=== PATIENT | female | born 1960 | race Caucasian/White ===

== ENCOUNTER 2019-10-13 07:53 | Day surgery (SDC) | payer BC, MEDICAID ==
[~2019-10-13 07:53] MED LIST: Bupivacaine 0.5%/EPINEPHrine 1:200,000 50 ML MDV ONE; Meropenem 500 MG SDV ONE; Midazolam 1 MG/ML 2 ML SDV ONE; Propofol 200 MG/20 ML SDV ONE; fentaNYL 100 MCG/2 ML SDV ONE
[2019-10-13] MEDS ORDERED: Dextrose 5%-Lactated Ringers 1,000 ML IV SCH (08:15)
[2019-10-13] MEDS: Acetaminophen 500 MG Tab PO ONE ×2 (08:18→08:38)
[2019-10-13] MEDS ORDERED: Glycopyrrolate 0.2 MG/ML 5 ML MDV ONE (09:19)
[2019-10-13] MEDS ORDERED: Neostigmine Methylsulfate 1 MG/ML 5 ML Syringe ONE (09:19)
[2019-10-13] MEDS ORDERED: Ondansetron 4 MG/2 ML SDV ONE (09:19)
[2019-10-13] MEDS ORDERED: fentaNYL 250 MCG/5 ML SDV ONE (09:19)
[2019-10-13] MEDS ORDERED: Rocuronium 50 MG/5 ML Vial ONE (09:19)
[2019-10-13] MEDS ORDERED: Propofol 200 MG/20 ML SDV ONE (09:19)
[2019-10-13] MEDS ORDERED: Dexamethasone 4 MG/ML SDV ONE (09:19)
[2019-10-13] MEDS ORDERED: Midazolam 1 MG/ML 2 ML SDV ONE (09:19)
[2019-10-13] MEDS ORDERED: Ketamine 500 MG/5 ML MDV IV SCH (09:30)
[2019-10-13] MEDS ORDERED: Ketamine 50 MG in Sodium Chloride 0.9% 49.5 ML IV SCH (09:30)
[2019-10-13] MEDS: cefOXitin 2 GM in Premix Bag 1 BAG IV ONE ×2 (09:39→13:06)
[2019-10-13] MEDS ORDERED: hydrOXYzine HCL 100 MG/2 ML SDV IM ONE (11:13)
[2019-10-13] MEDS ORDERED: fentaNYL 100 MCG/2 ML SDV IVPUSH ONE (11:13)
[2019-10-13] MEDS ORDERED: HYDROmorphone 0.5 MG/0.5 ML Syringe IVPUSH PRN (13:00)
[2019-10-13] MEDS ORDERED: Ondansetron 4 MG/2 ML SDV IVPUSH PRN (13:00)
[2019-10-13] MEDS: HYDROmorphone 1 MG/ML Syringe IV PRN ×2 (13:55→15:29)
[2019-10-13] MEDS: Acetaminophen 325 MG Tab PO SCH ×2 (15:31→19:50)
[2019-10-13] MEDS ORDERED: ceFAZolin 2 GM in Premix Bag 1 BAG IV SCH (16:00)
[2019-10-13] MEDS: Sucralfate 1 GM Tab PO SCH ×2 (16:21→21:32)
[2019-10-13] MEDS: ceFAZolin 1 GM in Premix Bag 1 BAG IV SCH ×2 (16:21→23:59)
[2019-10-13] MEDS: oxyCODONE 5 MG Tab PO PRN ×2 (17:52→22:36)
[2019-10-13] MEDS: Dextrose 5%-Lactated Ringers 1,000 ML IV SCH ×2 (17:53→21:25)
[2019-10-13] MEDS ORDERED: traZODone 50 MG Tab PO SCH (21:00)
[2019-10-13] MEDS: Latanoprost 0.005% Ophth Soln 2.5 ML Bottle EYEBOTH SCH (21:30)
[2019-10-14] MEDS: ceFAZolin 1 GM in Premix Bag 1 BAG IV SCH (00:02)
[2019-10-14] MEDS ORDERED: oxyCODONE 5 MG Tab PO PRN (00:20)
[2019-10-14] MEDS: Acetaminophen 325 MG Tab PO SCH ×3 (02:27→13:15)
[2019-10-14] MEDS: Dextrose 5%-Lactated Ringers 1,000 ML IV SCH (06:50)
[2019-10-14] MEDS: Sucralfate 1 GM Tab PO SCH ×2 (07:48→10:38)
[2019-10-14] MEDS: Latanoprost 0.005% Ophth Soln 2.5 ML Bottle EYEBOTH SCH (07:48)
[2019-10-14] MEDS ORDERED: Cyclobenzaprine 10 MG Tab PO PRN (07:52)
[2019-10-14] MEDS: traMADol 50 MG Tab PO PRN ×2 (08:46→13:15)
[2019-10-14] MEDS ORDERED: Loratadine 10 MG Tab PO SCH (09:00)
[2019-10-14] MEDS ORDERED: MIMVEY PO SCH (09:00)
--- NOTE | 2019-10-16 06:49 | DISCH ---
FINAL DIAGNOSES: 1. Incarcerated spigelian hernia. 2. Sclerotic contracted area on surface of right lobe of liver. OPERATIVE PROCEDURES: 1. Diagnostic laparoscopy with lysis of adhesions and: a. Repair of left incarcerated spigelian hernia with mesh. b. Needle biopsy of right lobe of liver. c. Wedge biopsy of right lobe of liver. d. Placement of Interceed mesh to prevent adhesions between the pelvic and abdominal wall and underlying viscera. That was done on 10/13/2019. SUMMARY: This is a 59-year-old presenting with an incarcerated left-sided spigelian hernia. On the date of admission, the patient underwent laparoscopic repair of this with mesh. This was classic spigelian hernia with visible branch of the inferior epigastric artery going right into the site of hernia. This was incarcerated with some omentum at this time. The patient had complained of some rectal bleeding of the sigmoid colon underlying this which may have been a clot at times, but it appeared to be at this time normal. One additional finding was that of a sclerotic white contracted area in the anterior aspect of the right lobe of the liver. Wedge and needle biopsies were obtained from this. No other specific pathology was seen in the liver. Postoperatively, the patient has done well. She will be discharged home with tramadol 50 mg q.4 to 6h. p.r.n. pain #40, Flexeril 10 mg p.o. q.8 hours p.r.n. muscle spasm #30 with 1 refill. We will send her home with 2 doses of milk of magnesia and she was instructed she can take Tylenol along with the tramadol. Follow up will be with Jesika Wallis at [facility] on 10/20/2019. With the patient having some recent rectal bleeding, she will be scheduled for a colonoscopy sometime in the latter part of October.
--- NOTE | 2019-10-23 11:59 | OR ---
DATE OF PROCEDURE: 10/13/2019 SURGEON: Wilfredo Argueta MD PREOPERATIVE DIAGNOSIS: Incarcerated spigelian hernia. POSTOPERATIVE DIAGNOSES: 1. Incarcerated left spigelian hernia. 2. Sclerotic contracted lesion on surface of right lobe of liver. OPERATIVE PROCEDURES: Diagnostic laparoscopy with lysis of adhesions: 1. Repair of incarcerated left spigelian hernia with mesh (87439). 2. Needle biopsies of sclerotic contracted lesion of right lobe of liver (35901). 3. Wedge biopsy of contracted sclerotic lesion of right lobe of liver (60498). 4. Placement of Interceed mesh to displace pelvic and abdominal wall from underlying viscera to limit recurrent adhesion formation (08029). ANESTHESIA: General. WAREHOUSE CONSULTANT: Jesika Wallis PA-C INDICATIONS FOR PROCEDURE: This is a 59-year-old female presenting with an incarcerated hernia in the left lower quadrant. This appears to be likely a spigelian hernia and has not been entirely reducible. There has been some rectal bleeding intermittently and this raises a question whether or not there might be an incarcerated component with some ischemic or injured bowel within the hernia. Plan is to proceed with diagnostic laparoscopy, laparotomy if necessary, and repair of the hernia. She is aware of the possible need for bowel resection should there be an ongoing injury or ischemic area of the sigmoid colon. Otherwise, potential risks of the procedure including bleeding, infection, and recurrence of the hernia with mesh becoming infected were all reviewed, and the patient wishes to proceed. DETAILS OF PROCEDURE: The patient was taken to the operating room and placed in a supine position. After general endotracheal anesthesia was induced, a Benítez catheter was inserted, which was removed at the end of the procedure, and the abdomen prepped and draped. In the right lateral abdomen, a transverse incision was made. The peritoneal cavity entered under direct vision with an Optiview trocar, inflated to 15 mmHg pressure with CO2. Laparoscope was then reinserted. No underlying trocar insertion site injuries were seen. Following this, 3 additional 5 mm trocars were placed across the right side of the abdomen. As expected, the patient had an incarcerated spigelian hernia. One could see the inferior epigastric vessels passing upward towards the side of the hernia and then passing into the hernia confirming this was in fact a spigelian hernia. Using Harmonic scalpel, the contents were removed. The underlying sigmoid colon was entirely un-diseased in appearance and did not appear to likely have been involved in the incarcerated hernia at any point. The omental tissue which we predominantly worked was within the hernia, but was eventually dissected free and excised, sent as a separate specimen. The hernia defect itself was then sutured from within using 0 Vicryl sutures with the fascia being approximated from within. Then, a 15.[address] mesh with the balloon positioning system was soaked in antibiotic-containing saline solution, placed in an intraperitoneal location. A small stab wound over the skin centered above the hernia was made, and the balloon catheter was then pulled up through the abdominal wall through that location surrounding the mesh over the site of this hernia, and balloon was inflated, and using absorbable tacking screws, the mesh was then fixed circumferentially in 2 rows with the absorbable tacking screws. The balloon was then deflated and removed and the mesh was confirmed to have good fixation in all areas. One additional finding of this was a sclerotic, somewhat contracted-appearing white lesion on the right lobe of the liver. This was more or less over the center of the anterior aspect of the right lobe of liver and measured around 3 cm. Initially, core biopsies were obtained from this, and then a small wedge biopsy also was then obtained to try to confirm the histologic nature of this. No other abnormalities were noted. Hemostasis was obtained with electrocautery at the biopsy sites. To limit recurrent adhesion formation to the underlying viscera from the pelvic and abdominal wall, specifically the area around the newly placed mesh, Interceed mesh was placed underneath those areas, and at that point, no further problems were noted. The trocars were removed, the peritoneal cavity deflated. The fascia at 12 mm site was closed with 0 Vicryl stitch and the skin with 4-0 Vicryl skin stitch. The patient received bilateral transversus abdominis plane blocks and also the wounds were anesthetized with 0.5% Marcaine. The patient was taken to the recovery room in satisfactory condition. Physician assistant cook, Jesika Wallis PA-C, played an essential role in assisting in this case, helping to position the patient, and retract structures as needed as well as suturing and cutting sutures when indicated. Her presence improved patient safety and decreased the operative time. Wilfredo Argueta MD /[id number]
== END 2019-10-14 13:25 | disposition home or self-care (01) ==
LOC: JP.SDS 07:53 → JP.MS 11:20 → JP.SDS 10-14 13:25
PROVIDERS: ATTEND Surgery
DX: K43.6 Other and unspecified ventral hernia with obstruction, without gangrene (principal); K74.0 Hepatic fibrosis; F41.8 Other specified anxiety disorders; K21.9 Gastro-esophageal reflux disease without esophagitis; G47.00 Insomnia, unspecified; Z87.891 Personal history of nicotine dependence; Z88.6 Allergy status to analgesic agent; Z88.8 Allergy status to other drugs, medicaments and biological substances
CPT/HCPCS: 36415; 47100; 49653; 80053; 83735; 84100; 85027; 88302; 88307; 88313; 94762; A9270; C1713; C1781; J0171; J0690; J0694; J1100; J1170; J2020; J2185; J2250; J2405; J2704; J2710; J2795; J3010; J3410; J3490; J7050; J7121

== ENCOUNTER 2021-12-04 06:50 | Day surgery (SDC) | payer MEDICAID ==
[2021-12-04] MEDS ORDERED: Propofol 200 MG/20 ML SDV ONE (06:58)
[2021-12-04] MEDS ORDERED: Midazolam 1 MG/ML 2 ML SDV ONE (06:58)
[2021-12-04] MEDS ORDERED: fentaNYL 100 MCG/2 ML SDV ONE (06:58)
[2021-12-04] MEDS: Dextrose 5%-Lactated Ringers 1,000 ML IV SCH (07:06)
== END 2021-12-04 09:45 | disposition home or self-care (01) ==
LOC: JP.SDS 06:50
PROVIDERS: ATTEND Surgery
DX: K62.1 Rectal polyp (principal); Q43.8 Other specified congenital malformations of intestine; K21.9 Gastro-esophageal reflux disease without esophagitis
CPT/HCPCS: 36415; 80053; 82378; 83735; 84100; 85027; J2250; J2704; J3010; J7121

== ENCOUNTER 2021-12-05 09:43 | Day surgery (SDC) | payer MEDICAID ==
[~2021-12-05 09:43] MED LIST changes: +Acetaminophen 500 MG Tab PO ONE; +Dexamethasone 4 MG/ML SDV ONE; +Dextrose 5%-Lactated Ringers 1,000 ML IV SCH; +Glycopyrrolate 0.2 MG/ML 5 ML MDV ONE; -Meropenem 500 MG SDV ONE; -Midazolam 1 MG/ML 2 ML SDV ONE; +Neostigmine Methylsulfate 1 MG/ML 5 ML Syringe ONE; +Ondansetron 4 MG/2 ML SDV ONE; +Rocuronium 50 MG/5 ML Vial ONE; +Succinylcholine 200 MG/10 ML MDV ONE; -fentaNYL 100 MCG/2 ML SDV ONE
[2021-12-05] MEDS ORDERED: Meropenem 500 MG in Sodium Chloride 0.9% 50 ML IV ONE (11:00)
[2021-12-05] MEDS ORDERED: Ketamine 500 MG/5 ML MDV IV SCH (11:15)
[2021-12-05] MEDS ORDERED: Ketamine 15 MG in Sodium Chloride 0.9% 19.85 ML IV SCH (11:15)
[2021-12-05] MEDS ORDERED: fentaNYL 250 MCG/5 ML SDV ONE (11:39)
[2021-12-05] MEDS ORDERED: Sugammadex Sodium 200 MG/2 ML VIAL ONE (12:04)
[2021-12-05] MEDS ORDERED: HYDROmorphone 2 MG Tab PO PRN (13:15)
== END 2021-12-05 13:35 | disposition home or self-care (01) ==
LOC: JP.SDS 09:43
PROVIDERS: ATTEND Surgery
DX: D12.8 Benign neoplasm of rectum (principal); F32.A Depression, unspecified; E03.9 Hypothyroidism, unspecified; K59.4 Anal spasm; Z79.899 Other long term (current) drug therapy; Z87.891 Personal history of nicotine dependence
CPT/HCPCS: A9270-GY; J0330; J1100; J2185; J2405; J2704; J2710; J3010; J3490; J7121

== ENCOUNTER 2022-01-27 06:37 | Inpatient (IN) | payer MEDICAID ==
[2022-01-27] MEDS ORDERED: Lidocaine 1% with EPINEPHrine 1:100,000 50 ML MDV ONE (06:55)
[2022-01-27] MEDS ORDERED: Bupivacaine 0.5% 50 ML MDV ONE (06:55)
[2022-01-27] MEDS ORDERED: Meropenem 500 MG SDV ONE ×2 (06:55→10:30)
[2022-01-27] MEDS ORDERED: cefOXitin 2 GM in Sodium Chloride 0.9% 50 ML IV ONE (07:30)
[2022-01-27] MEDS ORDERED: Scopolamine 1.5 MG Transdermal Patch TOP SCH (07:30)
[2022-01-27] MEDS ORDERED: Dextrose 5%-Lactated Ringers 1,000 ML IV SCH (07:30)
[2022-01-27] MEDS ORDERED: Acetaminophen 500 MG Tab PO ONE (07:30)
[2022-01-27] MEDS ORDERED: Sodium Chloride 0.9% 30 ML ONE (07:35)
[2022-01-27] MEDS ORDERED: fentaNYL 250 MCG/5 ML SDV ONE (07:35)
[2022-01-27] MEDS ORDERED: fentaNYL 100 MCG/2 ML SDV ONE ×2 (07:35→10:51)
[2022-01-27] MEDS ORDERED: Ondansetron 4 MG/2 ML SDV ONE (07:36)
[2022-01-27] MEDS ORDERED: Propofol 200 MG/20 ML SDV ONE (07:36)
[2022-01-27] MEDS ORDERED: Rocuronium 50 MG/5 ML Vial ONE (07:36)
[2022-01-27] MEDS ORDERED: Neostigmine Methylsulfate 1 MG/ML 5 ML Syringe ONE (07:36)
[2022-01-27] MEDS ORDERED: Dexamethasone 4 MG/ML SDV ONE (07:36)
[2022-01-27] MEDS ORDERED: Glycopyrrolate 0.2 MG/ML 5 ML MDV ONE (07:36)
[2022-01-27] MEDS ORDERED: Ketamine 15 MG in Sodium Chloride 0.9% 19.85 ML IV SCH (08:45)
[2022-01-27] MEDS ORDERED: Ketamine 500 MG/5 ML MDV IV SCH (08:45)
[2022-01-27] MEDS ORDERED: Naloxone 0.4 MG/ML SDV IVPUSH PRN (08:45)
[2022-01-27] MEDS ORDERED: Ondansetron 4 MG/2 ML SDV IVPUSH ONE (11:52)
[2022-01-27] MEDS ORDERED: Cyclobenzaprine 10 MG Tab PO PRN (12:40)
[2022-01-27] MEDS ORDERED: Labetalol 20 MG/4 ML Syringe IVPUSH PRN (13:00)
[2022-01-27] MEDS ORDERED: diphenhydrAMINE 50 MG/ML SDV IVPUSH PRN ×2 (13:00)
[2022-01-27] MEDS ORDERED: Acetaminophen 500 MG Tab PO PRN (13:00)
[2022-01-27] MEDS ORDERED: Ondansetron 4 MG/2 ML SDV IVPUSH PRN (13:00)
[2022-01-27] MEDS ORDERED: Naloxone 0.4 MG/ML SDV IV PRN (13:00)
[2022-01-27] MEDS ORDERED: hydrOXYzine HCL 100 MG/2 ML SDV IM PRN (13:00)
[2022-01-27] MEDS ORDERED: Metoclopramide 10 MG/2 ML SDV IVPUSH PRN (13:00)
[2022-01-27] MEDS: SCOPOLAMINE PATCH CHECK TOP SCH (14:08)
[2022-01-27] MEDS: Acetaminophen 500 MG Tab PO SCH (14:17)
[2022-01-27] MEDS: Pantoprazole 40 MG Vial IVPUSH SCH (14:17)
[2022-01-27] MEDS: fentaNYL 2,500 MCG in Sodium Chloride 0.9% 200 ML EPIDUR SCH (14:23)
[2022-01-27] MEDS: cefOXitin 2 GM in Sodium Chloride 0.9% 50 ML IV SCH ×2 (15:21→21:59)
[2022-01-27] MEDS: MVI, Adult with Vitamin K 10 ML, Thiamine 200 MG, Zinc/Copper/Manganese/Selenium 1 ML i... IV SCH ×4 (15:59)
[2022-01-27] MEDS: traZODone 50 MG Tab PO SCH (21:45)
[2022-01-27] MEDS: Latanoprost 0.005% Ophth Soln 2.5 ML Bottle EYEBOTH SCH (21:46)
[2022-01-27] MEDS: Dextrose 5%-Lactated Ringers 1,000 ML IV SCH (21:58)
[2022-01-28] MEDS: Acetaminophen 500 MG Tab PO SCH ×4 (01:13→21:03)
[2022-01-28] MEDS: cefOXitin 2 GM in Sodium Chloride 0.9% 50 ML IV SCH ×3 (03:39→16:04)
[2022-01-28] MEDS: Dextrose 5%-Lactated Ringers 1,000 ML IV SCH (04:15)
[2022-01-28] MEDS: fentaNYL 2,500 MCG in Sodium Chloride 0.9% 200 ML EPIDUR SCH (08:52)
[2022-01-28] MEDS ORDERED: Celecoxib 200 MG Cap PO SCH (09:00)
[2022-01-28] MEDS: Estradiol 0.5 MG Tab PO SCH (09:13)
[2022-01-28] MEDS: SCOPOLAMINE PATCH CHECK TOP SCH (09:14)
[2022-01-28] MEDS: [UNRECOGNIZED DRUG - OTHER] PO SCH (09:14)
[2022-01-28] MEDS: Magnesium Sulfate/Water 2 GM/50 ML BAG IV SCH ×3 (09:15→21:03)
[2022-01-28] MEDS ORDERED: Naloxone 0.4 MG in Dextrose 5%-Lactated Ringers 1,000 ML IV ONE (09:45)
[2022-01-28] MEDS: Pantoprazole 40 MG Vial IVPUSH SCH (13:27)
[2022-01-28] MEDS ORDERED: Dextrose 5%-Lactated Ringers 1,000 ML IV SCH (14:00)
[2022-01-28] MEDS: Naloxone 0.4 MG in Dextrose 5%-Lactated Ringers 1,000 ML IV SCH (17:03)
[2022-01-28] MEDS: MVI, Adult with Vitamin K 10 ML, Thiamine 200 MG, Zinc/Copper/Manganese/Selenium 1 ML i... IV SCH ×4 (17:38)
[2022-01-28] MEDS: traZODone 50 MG Tab PO SCH (21:02)
[2022-01-28] MEDS: Latanoprost 0.005% Ophth Soln 2.5 ML Bottle EYEBOTH SCH (21:03)
[2022-01-29] MEDS: Naloxone 0.4 MG in Dextrose 5%-Lactated Ringers 1,000 ML IV SCH ×3 (04:12→23:24)
[2022-01-29] MEDS: Magnesium Sulfate/Water 2 GM/50 ML BAG IV SCH ×4 (04:13→21:21)
[2022-01-29] MEDS: Acetaminophen 500 MG Tab PO SCH ×3 (05:49→21:33)
[2022-01-29] MEDS ORDERED: Meropenem 500 MG SDV ONE (06:46)
[2022-01-29] MEDS ORDERED: Bupivacaine 0.5% 50 ML MDV ONE (06:46)
[2022-01-29] MEDS ORDERED: Lidocaine 1% with EPINEPHrine 1:100,000 50 ML MDV ONE (06:47)
[2022-01-29] MEDS ORDERED: Propofol 200 MG/20 ML SDV ONE (06:56)
[2022-01-29] MEDS ORDERED: traZODone 50 MG Tab PO PRN (09:17)
[2022-01-29] MEDS: Estradiol 0.5 MG Tab PO SCH (10:31)
[2022-01-29] MEDS: Ibuprofen 400 MG Tab PO SCH ×3 (10:31→21:33)
[2022-01-29] MEDS: SCOPOLAMINE PATCH CHECK TOP SCH (10:33)
[2022-01-29] MEDS: [UNRECOGNIZED DRUG - OTHER] PO SCH (10:34)
[2022-01-29] MEDS: fentaNYL 2,500 MCG in Sodium Chloride 0.9% 200 ML EPIDUR SCH (12:38)
[2022-01-29] MEDS: Potassium Phos in 0.9 % NaCl 15 MMOL in Premix Bag 1 BAG IV SCH ×8 (12:38→23:25)
[2022-01-29] MEDS: Pantoprazole 40 MG Vial IVPUSH SCH (14:13)
[2022-01-29] MEDS: Latanoprost 0.005% Ophth Soln 2.5 ML Bottle EYEBOTH SCH (21:20)
[2022-01-29] MEDS: Docusate Sodium 100 MG Cap PO SCH (21:20)
[2022-01-29] MEDS: Bisacodyl 5 MG Tab PO SCH (21:20)
[2022-01-30] MEDS: Ibuprofen 400 MG Tab PO SCH ×5 (04:00→22:00)
[2022-01-30] MEDS: Magnesium Sulfate/Water 2 GM/50 ML BAG IV SCH (04:01)
[2022-01-30] MEDS: Acetaminophen 500 MG Tab PO SCH ×4 (05:28→22:00)
[2022-01-30] MEDS ORDERED: HYDROmorphone 2 MG Tab PO PRN (08:07)
[2022-01-30] MEDS ORDERED: Dextrose 5%-Lactated Ringers 1,000 ML IV SCH (08:15)
[2022-01-30] MEDS: Bisacodyl 5 MG Tab PO SCH ×2 (09:11→20:32)
[2022-01-30] MEDS: Docusate Sodium 100 MG Cap PO SCH ×2 (09:11→20:32)
[2022-01-30] MEDS: Estradiol 0.5 MG Tab PO SCH (09:11)
[2022-01-30] MEDS: Potassium Phos in 0.9 % NaCl 15 MMOL in Premix Bag 1 BAG IV SCH ×6 (09:12→13:57)
[2022-01-30] MEDS: [UNRECOGNIZED DRUG - OTHER] PO SCH (09:13)
[2022-01-30] MEDS: Pantoprazole 40 MG Vial IVPUSH SCH (13:54)
[2022-01-30] MEDS: Latanoprost 0.005% Ophth Soln 2.5 ML Bottle EYEBOTH SCH (20:32)
[2022-01-31] MEDS: Ibuprofen 400 MG Tab PO SCH ×2 (04:28→09:54)
[2022-01-31] MEDS: Acetaminophen 500 MG Tab PO SCH ×2 (04:29→05:56)
== END 2022-01-31 10:20 | disposition home or self-care (01) | DRG 331 ==
LOC: JP.SDS 06:37 → EDSTATUS 10:15 → JP.MS 11:30
PROVIDERS: ADMIT Surgery; ATTEND Surgery
PROC: 0D1B0ZP Bypass Ileum to Rectum, Open Approach (ICD-10-PCS; principal; 2022-01-27)
PROC: 0DBL0ZZ Excision of Transverse Colon, Open Approach (ICD-10-PCS; 2022-01-27)
PROC: 3E0M05Z Introduction of Adhesion Barrier into Peritoneal Cavity, Open Approach (ICD-10-PCS; 2022-01-27)
DX: K59.9 Functional intestinal disorder, unspecified (principal); E03.9 Hypothyroidism, unspecified; F32.A Depression, unspecified; F41.9 Anxiety disorder, unspecified; K59.09 Other constipation; M41.9 Scoliosis, unspecified; Z86.010 Personal history of colon polyps
CPT/HCPCS: 36415; 80053; 83735; 84100; 85025; 85027; 86850; 86900; 86901; 88307; A9270-GY; C9113; J0694; J1100; J2020; J2185; J2310; J2405; J2704; J2710; J3010; J3410; J3411; J3475; J3490; J7050; J7121